=== PATIENT | female | born 1980 | race Caucasian/White ===

== ENCOUNTER → 2016-07-01 | Outpatient (CLI) | payer BC | LOC: MW.CHOBGYN 11:25 | PROVIDERS: ATTEND Obstetrics & Gynecology | DX: Z32.00 Encounter for pregnancy test, result unknown (principal) | CPT/HCPCS: 81025 ==

== ENCOUNTER → 2016-08-22 | Outpatient (CLI) | payer BC ==
[2016-08-22 12:52] LABS: CHLORIDE,CL 108 mmol/L (98-110); SODIUM,NA 141 mmol/L (136-146)
== END ==
LOC: MW.CHFP 11:57
PROVIDERS: ATTEND Nurse Practitioner Family
DX: R53.83 Other fatigue (principal)
CPT/HCPCS: 36415; 80053; 83036; 84443; 85025; 85652; 86140

== ENCOUNTER 2017-06-10 05:20 | Inpatient (IN) | payer BC ==
[2017-06-10] MEDS ORDERED: Methylergonovine 0.2 MG/1 ML Amp IM PRN ×2 (05:33→14:41)
[2017-06-10] MEDS ORDERED: Misoprostol 200 MCG Tab PO PRN (05:33)
[2017-06-10] MEDS ORDERED: Lidocaine 1% 50 ML MDV INJECT PRN (05:33)
[2017-06-10] MEDS ORDERED: Terbutaline 1 MG/ML SDV SUBCUT PRN (05:33)
[2017-06-10] MEDS ORDERED: Butorphanol 1 MG/ML SDV IVPUSH PRN (05:33)
[2017-06-10] MEDS ORDERED: Carboprost Tromethamine 250 MCG/1 ML Amp IM PRN (05:33)
[2017-06-10] MEDS ORDERED: Nalbuphine 10 MG/1 ML Vial IVPUSH PRN (05:33)
[2017-06-10] MEDS ORDERED: Misoprostol 25 MCG (1/4 of 100 MCG) Tab VAG PRN (05:33)
[2017-06-10] MEDS ORDERED: Sodium Chloride 0.9% 10 ML Syringe FLUSH PRN (05:33)
[2017-06-10] MEDS ORDERED: Water For Irrigation,Sterile 1,000 ML Container IRR PRN (05:33)
[2017-06-10] MEDS ORDERED: Sodium Chloride 0.9% 2.5 ML Syringe FLUSH PRN (05:33)
[2017-06-10] MEDS ORDERED: Oxytocin/0.9 % Sodium Chloride 30 UNIT/500 ML BAG IV SCH ×2 (05:45)
[2017-06-10] MEDS ORDERED: Misoprostol 25 MCG (1/4 of 100 MCG) Tab VAG SCH (05:45)
[2017-06-10] MEDS: Lactated Ringers 1,000 ML IV SCH ×2 (05:54→08:46)
[2017-06-10] MEDS ORDERED: fentaNYL/Bupivacaine-NS 2 MCG/ML-0.125%/PF 100 ML Bag EP ONE (08:22)
[2017-06-10] MEDS ORDERED: Ropivacaine 0.2% 2 MG/ML 20 ML SDV ONE (08:22)
--- NOTE | 2017-06-10 09:00 | PCM.PREANE ---
Preanesthetic Assessment - Procedure Proposed Procedure: induction of Labor for Gestational DM - Anesthesia/Transfusion/Family Hx Anesthesia History: Prior Anesthesia Without Reaction Family History of Anesthesia Reaction: No Transfusion History: No Prior Transfusion(s) - Review of Systems Other: Reports: None - Physical Assessment Height: 5 ft 5 in Weight: 120.746 kg ASA Class: 2 Mental Status: Alert & Oriented x3 Airway Class: Mallampati = 1 Thyro-Mental Finger Breadths: 3 Mouth Opening Finger Breadths: 3 ROM/Head Extension: Full - Lab Values: Laboratory Last Values WBC 9.88 K/uL (4.0-11.0) 06/10/17 05:50 RBC 3.96 M/uL (4.30-5.90) L 06/10/17 05:50 Hgb 10.9 g/dL (12.0-16.0) L 06/10/17 05:50 Hct 33.2 % (36.0-46.0) L 06/10/17 05:50 MCV 83.8 fL (80.0-98.0) 06/10/17 05:50 MCH 27.5 pg (27.0-32.0) 06/10/17 05:50 MCHC 32.8 g/dL (31.0-37.0) 06/10/17 05:50 RDW Std Deviation 44.9 fl (28.0-62.0) 06/10/17 05:50 RDW Coeff of River 15 % (11.0-15.0) 06/10/17 05:50 Plt Count 197 K/uL (150-400) 06/10/17 05:50 MPV 12.10 fL (7.40-12.00) H 06/10/17 05:50 Nucleated RBC % 0.0 /100WBC 06/10/17 05:50 Nucleated RBCs # 0 K/uL 06/10/17 05:50 POC Glucose 62 mg/dL (60-110) 06/10/17 07:24 Blood Type A POSITIVE 06/10/17 05:50 Antibody Screen NEGATIVE 06/10/17 05:50 - Allergies Allergies/Adverse Reactions: Allergies Allergy/AdvReac Type Severity Reaction Status Date / Time desogestrel Allergy Rash Verified 06/10/17 05:33 [From BeOnDesk (21)] ethinyl estradiol Allergy Rash Verified 06/10/17 05:33 [From Ortho-Cept (21)] - Blood Blood Available: Yes Product(s) Available: PRBC - Acknowledgements Anesthesia Type Planned: Epidural Pt an Appropriate Candidate for the Planned Anesthesia: Yes Alternatives and Risks of Anesthesia Discussed w Pt/Guardian: Yes Pt/Guardian Understands and Agrees with Anesthesia Plan: Yes PreAnesthesia 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 , , 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 Other OB/BYN History: 10 para 4 Endocrine/Metabolic History: Reports: Diabetes, Gestational - Past Surgical History HEENT Surgical History: Reports: Other (See Below) Other HEENT Surgeries/Procedures: wisdom tooth extraction GI Surgical History: Reports: Cholecystectomy Other Musculoskeletal Surgeries/Procedures:: right wrist - SUBSTANCE USE Smoking Status *Q: Never Smoker Second Hand Smoke Exposure: No Recreational Drug Use History: No - CURRENT (IN HOUSE) MEDS Current Meds: Current Medications Butorphanol Tartrate (Stadol) 1 mg IVPUSH ASDIRECTED PRN PRN Reason: Pain Carboprost Tromethamine (Hemabate Ds) 250 mcg IM ASDIRECTED PRN PRN Reason: Post Hemorrhage Lactated Ringer's (Ringers, Lactated) 1,000 mls @ 150 mls/hr IV ASDIRECTED DANIEL Last Admin: 06/10/17 08:46 Dose: 150 mls/hr Oxytocin/Sodium Chloride (Oxytocin 30 Unit/500 Ml-Ns) 30 unit in 500 mls @ 999 mls/hr IV ASDIRECTED DANIEL Lidocaine HCl (Xylocaine 1%) 50 ml INJECT .ONCE PRN PRN Reason: Laceration repair Methylergonovine Maleate (Methergine) 0.2 mg IM ASDIRECTED PRN PRN Reason: Post Hemorrhage Misoprostol (Cytotec) 200 mcg PO .ONCE PRN PRN Reason: Post Hemorrhage Misoprostol (Cytotec) 25 mcg VAG .ONCE DANIEL Misoprostol (Cytotec) 25 mcg VAG Q6H PRN PRN Reason: Cervical Ripening Last Admin: 06/10/17 06:12 Dose: 25 mcg Nalbuphine HCl (Nubain) 10 mg IVPUSH ASDIRECTED PRN PRN Reason: Pain (severe 7-10) Sodium Chloride (Saline Flush) 10 ml FLUSH ASDIRECTED PRN PRN Reason: Keep Vein Open Sodium Chloride (Saline Flush) 2.5 ml FLUSH ASDIRECTED PRN PRN Reason: Keep Vein Open Sterile Water (Sterile Water For Irrigation) 1,000 ml IRR ASDIRECTED PRN PRN Reason: delivery Terbutaline Sulfate (Brethine) 0.25 mg SUBCUT ASDIRECTED PRN PRN Reason: Tacysystole Discontinued Medications Ropivacaine (Naropin 0.2%) Confirm Administered Dose 20 ml .ROUTE .[facility] ONE Stop: 06/10/17 08:23
[2017-06-10] MEDS ORDERED: Misoprostol 50 MCG (1/2 of 100 MCG) Tab VAG SCH (11:15)
[2017-06-10] MEDS ORDERED: Dextrose 5%-0.45% NaCl 1,000 ML IV SCH (11:15)
[2017-06-10] MEDS ORDERED: oxyCODONE 5 MG Tab PO PRN (14:41)
[2017-06-10] MEDS ORDERED: Benzocaine/Menthol 20%-0.5% Spray 78 GM Cannister TOP PRN (14:41)
[2017-06-10] MEDS ORDERED: Bisacodyl 10 MG Supp RECTAL PRN (14:41)
[2017-06-10] MEDS ORDERED: Acetaminophen 500 MG Tab PO PRN ×2 (14:41)
[2017-06-10] MEDS ORDERED: Ibuprofen 400 MG Tab PO PRN (14:41)
[2017-06-10] MEDS ORDERED: Witch Hazel Medicated Pads 40/Jar TOP PRN (14:41)
[2017-06-10] MEDS ORDERED: Docusate Sodium 100 MG Cap PO PRN (14:41)
[2017-06-10] MEDS ORDERED: Lanolin 100% Cream 7 GM Tube TOP PRN (14:41)
[2017-06-11] MEDS: Ibuprofen 800 MG Tab PO PRN ×2 (01:37→12:00)
--- NOTE | 2017-06-11 06:22 | OR ---
SURGEON: Nicole Salmeron M.D. DATE OF PROCEDURE: 06/10/2017 PREOPERATIVE DIAGNOSIS: A 39 and 2/7th weeks' gestation with gestational diabetes type A1, advanced maternal age. POSTOPERATIVE DIAGNOSES: A 39 and 2/7th weeks' gestation with gestational diabetes type A1, advanced maternal age. PROCEDURE: Cytotec induction of labor, term spontaneous vaginal delivery. ANESTHESIA: Epidural. ESTIMATED BLOOD LOSS: Less than 300 mL. FINDINGS: Liveborn female, scores 9 and 9. Weight pending at the time of dictation. Placenta delivered spontaneously. Schultze intact with 3 vessels. No perineal lacerations. COMPLICATIONS: None known. DISPOSITION: Mother and baby remained in [facility] in good condition. BRIEF HISTORY: This is a 37-year-old female. She is G12, P4. She presents for induction of labor. She is 37 years old and has gestational diabetes. She has previously been induced with Cytotec only with very easy inductions, and therefore she did receive 2 doses of cytotec approximately 5 hours apart. About 3 hours after the first dose of Cytotec, she was 2 cm dilated, artificial rupture of membranes was performed. She received an epidural for pain control. She continued to progress to 7 to 8 cm dilatation, at which time, the head was noted to be in the right occiput posterior position and was manually rotated to the right occiput anterior position, and at this time, the cervix was reduced and she was complete. DESCRIPTION OF PROCEDURE: With the patient in the dorsal lithotomy position, the patient pushed over 2 contractions to a 5+ station, at which time, the head was delivered spontaneously and atraumatically over the perineum with support. With subsequent delivery of the infant's shoulders and body without any difficulty, the was bulb suctioned by nose and mouth. The cord was clamped x2 and cut after it had ceased to pulsate, and the infant was handed to the mother in the presence of the nurse attending delivery. The infant was a liveborn female. scores 9 and 9. Weight is pending at the time of dictation. Cord blood was collected for cord ABGs as well as routine cord blood sampling. Pitocin was initiated after delivery of the infant to assist with delivery of the placenta which was delivered spontaneously. Schultze intact with 3 vessels. Upon inspection of the pelvis and perineum, there were no periurethral, vaginal sidewall, cervical, rectal, or perineal lacerations. EBL was less than 300 mL. There were no known complications. Mother and baby are in [facility] in good condition. Final sponge, needle, and instrument counts were correct. JOSE LUIS LEE /[id number] MTDD
[2017-06-11 06:29] LABS: CHLORIDE,CL 108 mmol/L (98-110); SODIUM,NA 137 mmol/L (136-146)
--- NOTE | 2017-06-11 08:16 | PCM48HPAN ---
Post Anesthesia Note - EVALUATION WITHIN 48HRS OF ANESTHETIC Vital Signs in Normal Range: Yes Patient Participated in Evaluation: Yes Respiratory Function Stable: Yes Airway Patent: Yes Cardiovascular Function Stable: Yes Hydration Status Stable: Yes Pain Control Satisfactory: Yes Nausea and Vomiting Control Satisfactory: Yes Mental Status Recovered: Yes
--- NOTE | 2017-06-11 08:35 | PCM.PNPP ---
- General Info Date of Service: 06/11/17 Functional Status: Reports: Pain Controlled, Tolerating Diet, Ambulating, Urinating - Review of Systems General: Denies: Fever, Weakness, Fatigue Pulmonary: Denies: Shortness of Breath, Pleuritic Chest Pain, Cough Cardiovascular: Denies: Chest Pain, Palpitations, Dyspnea on Exertion Gastrointestinal: Denies: Abdominal Pain Genitourinary: Denies: Dysuria - General Info Date of Service: 06/11/17 - Patient Data Vital Signs - Most Recent: Last Vital Signs Temp 36.4 C 06/11/17 04:11 Pulse 69 06/11/17 04:11 Resp 18 06/11/17 04:11 BP 126/73 06/11/17 04:11 Pulse Ox 100 06/11/17 04:11 Weight - Most Recent: 120.746 kg Lab Results - Last 24 Hours: Laboratory Results - last 24 hr 06/10/17 06/10/17 06/11/17 Range/Units 10:46 12:53 05:50 Hgb 10.6 L (12.0-16.0) g/dL Hct 32.8 L (36.0-46.0) % Sodium (136-146) mmol/L Potassium (3.5-5.1) mmol/L Chloride (98-110) mmol/L Carbon Dioxide (21-31) mmol/L BUN (6.0-23.0) mg/dL Creatinine (0.6-1.5) mg/dL Est Cr Clr Drug Dosing mL/min Estimated GFR (MDRD) ml/min Glucose (60-110) mg/dL POC Glucose 50 L 65 (60-110) mg/dL Calcium (8.8-10.8) mg/dL 06/11/17 Range/Units 05:50 Hgb (12.0-16.0) g/dL Hct (36.0-46.0) % Sodium 137 (136-146) mmol/L Potassium 3.5 (3.5-5.1) mmol/L Chloride 108 (98-110) mmol/L Carbon Dioxide 22 (21-31) mmol/L BUN 8 (6.0-23.0) mg/dL Creatinine 0.7 (0.6-1.5) mg/dL Est Cr Clr Drug Dosing 97.09 mL/min Estimated GFR (MDRD) > 60.0 ml/min Glucose 68 (60-110) mg/dL POC Glucose (60-110) mg/dL Calcium 8.4 L (8.8-10.8) mg/dL Med Orders - Current: Current Medications Acetaminophen (Tylenol Extra Strength) 500 mg PO Q4H PRN PRN Reason: Pain Acetaminophen (Tylenol Extra Strength) 1,000 mg PO Q4H PRN PRN Reason: Pain Last Admin: 06/11/17 04:07 Dose: 1,000 mg Benzocaine/Menthol (Dermoplast Pain Relief 20%-0.5% [place]) 78 gm TOP ASDIRECTED PRN PRN Reason: Perineal Comfort Measure Bisacodyl (Dulcolax) 10 mg RECTAL .ONCE PRN PRN Reason: Constipation Docusate Sodium (Colace) 100 mg PO BID PRN PRN Reason: Constipation Emollient Ointment (Lansinoh Hpa) 0 gm TOP ASDIRECTED PRN PRN Reason: Sore Nipples Ibuprofen (Motrin) 400 mg PO Q4H PRN PRN Reason: Pain Ibuprofen (Motrin) 800 mg PO Q6H PRN PRN Reason: Pain Last Admin: 06/11/17 01:37 Dose: 800 mg Methylergonovine Maleate (Methergine) 0.2 mg IM .ONCE PRN PRN Reason: Excessive Vaginal Bleeding Oxycodone HCl (Oxycodone) 5 mg PO Q2H PRN PRN Reason: Pain Witch Rajni (Tucks) 1 pad TOP ASDIRECTED PRN PRN Reason: comfort care Discontinued Medications Butorphanol Tartrate (Stadol) 1 mg IVPUSH ASDIRECTED PRN PRN Reason: Pain Carboprost Tromethamine (Hemabate Ds) 250 mcg IM ASDIRECTED PRN PRN Reason: Post Hemorrhage Lactated Ringer's (Ringers, Lactated) 1,000 mls @ 150 mls/hr IV ASDIRECTED [facility] Last Admin: 06/10/17 08:46 Dose: 150 mls/hr Oxytocin/Sodium Chloride (Oxytocin 30 Unit/500 Ml-Ns) 30 unit in 500 mls @ 999 mls/hr IV ASDIRECTED [facility] Last Admin: 06/10/17 14:22 Dose: 500 mls/hr Dextrose/Sodium Chloride (Dextrose 5%-1/2 Ns) 1,000 mls @ 125 mls/hr IV ASDIRECTED DANIEL Last Admin: 06/10/17 11:30 Dose: 125 mls/hr Lidocaine HCl (Xylocaine 1%) 50 ml INJECT .ONCE PRN PRN Reason: Laceration repair Methylergonovine Maleate (Methergine) 0.2 mg IM ASDIRECTED PRN PRN Reason: Post Hemorrhage Misoprostol (Cytotec) 200 mcg PO .ONCE PRN PRN Reason: Post Hemorrhage Misoprostol (Cytotec) 25 mcg VAG .ONCE DANIEL Last Admin: 06/10/17 11:40 Dose: 25 mcg Misoprostol (Cytotec) 25 mcg VAG Q6H PRN PRN Reason: Cervical Ripening Last Admin: 06/10/17 06:12 Dose: 25 mcg Misoprostol (Cytotec) 25 mcg VAG .ONCE DANIEL Nalbuphine HCl (Nubain) 10 mg IVPUSH ASDIRECTED PRN PRN Reason: Pain (severe 7-10) Ropivacaine (Naropin 0.2%) Confirm Administered Dose 20 ml .ROUTE .[facility] ONE Stop: 06/10/17 08:23 Sodium Chloride (Saline Flush) 10 ml FLUSH ASDIRECTED PRN PRN Reason: Keep Vein Open Sodium Chloride (Saline Flush) 2.5 ml FLUSH ASDIRECTED PRN PRN Reason: Keep Vein Open Sterile Water (Sterile Water For Irrigation) 1,000 ml IRR ASDIRECTED PRN PRN Reason: delivery Last Admin: 06/10/17 14:20 Dose: 1,000 ml Terbutaline Sulfate (Brethine) 0.25 mg SUBCUT ASDIRECTED PRN PRN Reason: Tacysystole - Infant Interaction Disposition, : [place] in Room with Family Infant Interaction: Holding Feeding: Breastfed Infant; Nursed Well Support Person: - Recovery Exam Fundal Tone: Firm Fundal Level: 1 Fingerbreadths Below Umbilicus Fundal Placement: Midline Lochia Amount: Scant Lochia Color: Rubra/Red Perineum Description: Intact, Minimal Bruising/Swelling Episiotomy/Laceration: None Bladder Status: Voiding Urinary Elimination: Voided - Exam General: Alert, Oriented Neck: Supple Lungs: Clear to Auscultation, Normal Respiratory Effort Cardiovascular: Regular Rate, Regular Rhythm Extremities: Normal Inspection, Pedal Edema (trace) Skin: Warm, Dry - Problem List & Annotations (1) Vaginal delivery SNOMED Code(s): 941276905 Code(s): O80 - ENCOUNTER FOR FULL-TERM UNCOMPLICATED DELIVERY Status: Acute Current Visit: Yes - Problem List Review Problem List Initiated/Reviewed/Updated: Yes - Assessment Assessment:: PPD#1 from . Minimal pain and lochia. Breast feeding well, however, with low blood sugars. If stabilizes plans discharge later today. - Plan Plan:: Discharge instructions reviewed. Nothing in the vagina for 6 weeks. Continue PNV while breast feeding. Can use OTC ibuprofen/tylenol as needed for pain. Instructed patient to call if she develops fever greater than 101 or bleeding through a large pad an hour. F/U with [facility] in 6 weeks.
== END 2017-06-11 17:00 | disposition home or self-care (01) | DRG 560 ==
LOC: MW.OB 05:20
PROVIDERS: ADMIT Obstetrics & Gynecology; ATTEND Obstetrics & Gynecology
PROC: 10E0XZZ Delivery of Products of Conception, External Approach (ICD-10-PCS; principal; 2017-06-10)
PROC: 3E0P7VZ Introduction of Hormone into Female Reproductive, Via Natural or Artificial Opening (ICD-10-PCS; 2017-06-10)
PROC: 10907ZC Drainage of Amniotic Fluid, Therapeutic from Products of Conception, Via Natural or Artificial Opening (ICD-10-PCS; 2017-06-10)
DX: O24.429 Gestational diabetes mellitus in childbirth, unspecified control (principal); O09.523 Supervision of elderly multigravida, third trimester; O09.43 Supervision of pregnancy with grand multiparity, third trimester; Z3A.39 39 weeks gestation of pregnancy; Z37.0 Single live birth
CPT/HCPCS: 36415; 51702; 59025; 59409; 80048; 82962; 85014; 85018; 85027; 86850; 86900; 86901; A9270-GY; J2590; J7042; J7120

== ENCOUNTER 2019-01-04 17:38 | Emergency (ER) | payer OTHER, BC ==
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
== END 2019-01-04 19:13 | disposition home or self-care (01) ==
LOC: MW.ED 17:38
DX: Z04.1 Encounter for examination and observation following transport accident (principal); O99.511 Diseases of the respiratory system complicating pregnancy, first trimester; J45.909 Unspecified asthma, uncomplicated; Z3A.10 10 weeks gestation of pregnancy
CPT/HCPCS: 99282; 99283

== ENCOUNTER 2019-07-27 11:20 | Inpatient (IN) | payer SELFPAY ==
[2019-07-27] MEDS ORDERED: Lidocaine 1% 50 ML MDV INJECT PRN (11:59)
[2019-07-27] MEDS ORDERED: Water For Irrigation,Sterile 1,000 ML Container IRR PRN (11:59)
[2019-07-27] MEDS ORDERED: Methylergonovine 0.2 MG/1 ML Amp IM PRN ×2 (11:59→18:15)
[2019-07-27] MEDS ORDERED: Sodium Chloride 0.9% 2.5 ML Syringe FLUSH PRN (11:59)
[2019-07-27] MEDS ORDERED: Carboprost Tromethamine 250 MCG/1 ML Amp IM PRN (11:59)
[2019-07-27] MEDS ORDERED: Sodium Chloride 0.9% 10 ML SDV IV PRN (11:59)
[2019-07-27] MEDS ORDERED: Sodium Chloride 0.9% 10 ML Syringe FLUSH PRN (11:59)
[2019-07-27] MEDS ORDERED: Tranexamic Acid 1,000 MG in Sodium Chloride 0.9% 100 ML IV PRN ×2 (11:59→18:15)
[2019-07-27] MEDS ORDERED: Nalbuphine 10 MG/1 ML Vial IVPUSH PRN (11:59)
[2019-07-27] MEDS ORDERED: Butorphanol 1 MG/ML SDV IVPUSH PRN (11:59)
[2019-07-27] MEDS ORDERED: Misoprostol 200 MCG Tab PO PRN (11:59)
[2019-07-27] MEDS ORDERED: Oxytocin/0.9 % Sodium Chloride 30 UNIT/500 ML BAG IV SCH (12:00)
[2019-07-27] MEDS ORDERED: Misoprostol 25 MCG (1/4 of 100 MCG) Tab VAG PRN ×2 (12:01)
[2019-07-27] MEDS ORDERED: Terbutaline 1 MG/ML SDV SUBCUT PRN (12:01)
[2019-07-27] MEDS: Lactated Ringers 1,000 ML IV SCH ×2 (16:20→17:10)
[2019-07-27] MEDS ORDERED: Bupivicaine/fentaNYL/NS 250 ML ONE (16:23)
[2019-07-27] MEDS ORDERED: fentaNYL 100 MCG/2 ML SDV ONE (16:24)
[2019-07-27] MEDS ORDERED: Ropivacaine 0.2% PF 2 MG/ML 20 ML SDV ONE (16:25)
--- NOTE | 2019-07-27 16:56 | PCM.PREANE ---
Preanesthetic Assessment - Anesthesia/Transfusion/Family Hx Anesthesia History: Prior Anesthesia Without Reaction Family History of Anesthesia Reaction: No Transfusion History: No Prior Transfusion(s) - Review of Systems General: No Symptoms Pulmonary: No Symptoms Cardiovascular: No Symptoms Gastrointestinal: Abdominal Pain Neurological: No Symptoms Other: Reports: None - Physical Assessment NPO Status Date: 07/26/19 Height: 5 ft 4.5 in Weight: 123.831 kg ASA Class: 2E Mental Status: Alert & Oriented x3 Airway Class: Mallampati = 2 Dentition: Reports: Normal Dentition ROM/Head Extension: Full Lungs: Clear to Auscultation, Normal Respiratory Effort Cardiovascular: Regular Rate, Regular Rhythm - Lab Values: Laboratory Last Values WBC 10.43 K/uL (4.0-11.0) 07/27/19 11:50 RBC 3.90 M/uL (4.30-5.90) L 07/27/19 11:50 Hgb 10.4 g/dL (12.0-16.0) L 07/27/19 11:50 Hct 33.2 % (36.0-46.0) L 07/27/19 11:50 MCV 85.1 fL (80.0-98.0) 07/27/19 11:50 MCH 26.7 pg (27.0-32.0) L 07/27/19 11:50 MCHC 31.3 g/dL (31.0-37.0) 07/27/19 11:50 RDW Std Deviation 47.0 fl (28.0-62.0) 07/27/19 11:50 RDW Coeff of River 15 % (11.0-15.0) 07/27/19 11:50 Plt Count 218 K/uL (150-400) 07/27/19 11:50 MPV 11.50 fL (7.40-12.00) 07/27/19 11:50 Nucleated RBC % 0.0 /100WBC 07/27/19 11:50 Nucleated RBCs # 0 K/uL 07/27/19 11:50 Blood Type A POSITIVE 07/27/19 11:50 Antibody Screen NEGATIVE 07/27/19 11:50 - Allergies Allergies/Adverse Reactions: Allergies Allergy/AdvReac Type Severity Reaction Status Date / Time desogestrel Allergy Rash Verified 01/04/19 18:09 [From Ortho-Cept (21)] ethinyl estradiol Allergy Rash Verified 01/04/19 18:09 [From Ortho-Cept (21)] - Anesthesia Plan Pre-Op Medication Ordered: None - Acknowledgements Anesthesia Type Planned: Epidural Pt an Appropriate Candidate for the Planned Anesthesia: Yes Alternatives and Risks of Anesthesia Discussed w Pt/Guardian: Yes Pt/Guardian Understands and Agrees with Anesthesia Plan: Yes PreAnesthesia Questionnaire Cardiovascular History: Reports: None Respiratory History: Reports: None Gastrointestinal History: Reports: Cholelithiasis, Irritable Bowel Syndrome Genitourinary History: Reports: None 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: , 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 Other OB/BYN History: 11 para 5 Musculoskeletal History: Reports: Fracture, Fibromyalgia Neurological History: Reports: Concussion, Headaches, Chronic, Migraines Psychiatric History: Reports: Anxiety, Depression, Panic Attack, PTSD Endocrine/Metabolic History: Reports: Diabetes, Gestational Hematologic History: Reports: None Immunologic History: Reports: None Oncologic (Cancer) History: Reports: None Dermatologic History: Reports: None - Infectious Disease History Infectious Disease History: Reports: Chicken Pox, Influenza - Past Surgical History Head Surgeries/Procedures: Reports: None HEENT Surgical History: Reports: Oral Surgery Other HEENT Surgeries/Procedures: wisdom tooth extraction GI Surgical History: Reports: Cholecystectomy Female Surgical History: Reports: None Musculoskeletal Surgical History: Reports: ORIF Other Musculoskeletal Surgeries/Procedures:: right wrist, R wrist repair with 2 pins - SUBSTANCE USE Smoking Status *Q: Never Smoker Second Hand Smoke Exposure: No Recreational Drug Use History: No - HOME MEDS Home Medications: Home Meds Pnv No.95/Ferrous Fum/Folic AC [ Caplet] 1 each PO DAILY 01/04/19 [ History] Escitalopram [Lexapro] 10 mg PO DAILY 07/27/19 [History] - CURRENT (IN HOUSE) MEDS Current Meds: Current Medications Butorphanol Tartrate (Stadol) 1 mg IVPUSH Q1H PRN PRN Reason: Pain Carboprost Tromethamine (Hemabate Ds) 250 mcg IM ASDIRECTED PRN PRN Reason: Post Hemorrhage Lactated Ringer's (Ringers, Lactated) 1,000 mls @ 150 mls/hr IV ASDIRECTED DANIEL Oxytocin/Sodium Chloride (Oxytocin 30 Unit/500 Ml-Ns) 30 unit in 500 mls @ 500 mls/hr IV TITRATE DANIEL Tranexamic Acid 1,000 mg/ (Sodium Chloride) 110 mls @ 660 mls/hr IV ONETIME PRN PRN Reason: Bleeding Lidocaine HCl (Xylocaine 1%) 50 ml INJECT ONETIME PRN PRN Reason: Laceration repair Methylergonovine Maleate (Methergine) 0.2 mg IM ASDIRECTED PRN PRN Reason: Post Hemorrhage Misoprostol (Cytotec) 200 mcg PO ONETIME PRN PRN Reason: Post Hemorrhage Misoprostol (Cytotec) 25 mcg VAG ONETIME PRN PRN Reason: Cervical Ripening Last Admin: 07/27/19 12:26 Dose: 25 mcg Misoprostol (Cytotec) 25 mcg VAG Q4H PRN PRN Reason: Cervical Ripening Nalbuphine HCl (Nubain) 10 mg IVPUSH Q1H PRN PRN Reason: Pain (severe 7-10) Sodium Chloride (Saline Flush) 10 ml FLUSH ASDIRECTED PRN PRN Reason: Keep Vein Open Sodium Chloride (Saline Flush) 2.5 ml FLUSH ASDIRECTED PRN PRN Reason: Keep Vein Open Sodium Chloride (Normal Saline) 10 ml IV ASDIRECTED PRN PRN Reason: IV Use Sterile Water (Sterile Water For Irrigation) 1,000 ml IRR ASDIRECTED PRN PRN Reason: delivery Terbutaline Sulfate (Brethine) 0.25 mg SUBCUT ASDIRECTED PRN PRN Reason: Tacysystole Discontinued Medications Fentanyl (Sublimaze) Confirm Administered Dose 100 mcg .ROUTE .[facility] ONE Stop: 07/27/19 16:25 Fentanyl/Bupivacaine HCl (Fentanyl/Bupivacaine/Ns 2 Mcg-0.125% 250 Ml) Confirm Administered Dose 250 mls @ as directed .ROUTE .[facility] ONE Stop: 07/27/19 16:24 Ropivacaine (Naropin 0.2%) Confirm Administered Dose 20 ml .ROUTE .[facility] ONE Stop: 07/27/19 16:26
--- NOTE | 2019-07-27 18:13 | PCM.DEL ---
L & D Note - General Info Date of Service: 07/27/19 Mother's Due Date: 07/29/19 - Delivery Note Cervical Ripening Method: Misoprostil Delivery Outcome: Livebirth Infant Delivery Method: Spontaneous Vaginal Delivery-Single Presentation: Left Occiput Anterior (LIDYA) Nuchal Cord: None Prep: Other Anesthesia Type: Epidural Amniotic Fluid Description: Meconium Stained Episiotomy Type: None Laceration: None Placenta: Intact, Spontaneous Cord: 3 Vessels Resuscitation Needed: No : Suctioned Score 1 min: 8 Score 5 min: 8 Delivery Comments (Free Text/Narrative):: liveborn female - General Info Date of Service: 07/27/19 - Patient Data Weight - Most Recent: 123.831 kg Lab Results Last 24 Hours: Laboratory Results - last 24 hr 07/27/19 07/27/19 Range/Units 11:50 11:50 WBC 10.43 (4.0-11.0) K/uL RBC 3.90 L (4.30-5.90) M/uL Hgb 10.4 L (12.0-16.0) g/dL Hct 33.2 L (36.0-46.0) % MCV 85.1 (80.0-98.0) fL MCH 26.7 L (27.0-32.0) pg MCHC 31.3 (31.0-37.0) g/dL RDW Std Deviation 47.0 (28.0-62.0) fl RDW Coeff of River 15 (11.0-15.0) % Plt Count 218 (150-400) K/uL MPV 11.50 (7.40-12.00) fL Nucleated RBC % 0.0 /100WBC Nucleated RBCs # 0 K/uL Blood Type A POSITIVE Antibody Screen NEGATIVE Med Orders - Current: Current Medications Butorphanol Tartrate (Stadol) 1 mg IVPUSH Q1H PRN PRN Reason: Pain Carboprost Tromethamine (Hemabate Ds) 250 mcg IM ASDIRECTED PRN PRN Reason: Post Hemorrhage Lactated Ringer's (Ringers, Lactated) 1,000 mls @ 150 mls/hr IV ASDIRECTED DANIEL Oxytocin/Sodium Chloride (Oxytocin 30 Unit/500 Ml-Ns) 30 unit in 500 mls @ 500 mls/hr IV TITRATE DANIEL Tranexamic Acid 1,000 mg/ (Sodium Chloride) 110 mls @ 660 mls/hr IV ONETIME PRN PRN Reason: Bleeding Lidocaine HCl (Xylocaine 1%) 50 ml INJECT ONETIME PRN PRN Reason: Laceration repair Methylergonovine Maleate (Methergine) 0.2 mg IM ASDIRECTED PRN PRN Reason: Post Hemorrhage Misoprostol (Cytotec) 200 mcg PO ONETIME PRN PRN Reason: Post Hemorrhage Misoprostol (Cytotec) 25 mcg VAG ONETIME PRN PRN Reason: Cervical Ripening Last Admin: 07/27/19 12:26 Dose: 25 mcg Misoprostol (Cytotec) 25 mcg VAG Q4H PRN PRN Reason: Cervical Ripening Nalbuphine HCl (Nubain) 10 mg IVPUSH Q1H PRN PRN Reason: Pain (severe 7-10) Sodium Chloride (Saline Flush) 10 ml FLUSH ASDIRECTED PRN PRN Reason: Keep Vein Open Sodium Chloride (Saline Flush) 2.5 ml FLUSH ASDIRECTED PRN PRN Reason: Keep Vein Open Sodium Chloride (Normal Saline) 10 ml IV ASDIRECTED PRN PRN Reason: IV Use Sterile Water (Sterile Water For Irrigation) 1,000 ml IRR ASDIRECTED PRN PRN Reason: delivery Terbutaline Sulfate (Brethine) 0.25 mg SUBCUT ASDIRECTED PRN PRN Reason: Tacysystole Discontinued Medications Fentanyl (Sublimaze) Confirm Administered Dose 100 mcg .ROUTE .STK-MED ONE Stop: 07/27/19 16:25 Fentanyl/Bupivacaine HCl (Fentanyl/Bupivacaine/Ns 2 Mcg-0.125% 250 Ml) Confirm Administered Dose 250 mls @ as directed .ROUTE .STK-MED ONE Stop: 07/27/19 16:24 Ropivacaine (Naropin 0.2%) Confirm Administered Dose 20 ml .ROUTE .STK-MED ONE Stop: 07/27/19 16:26 - Problem List & Annotations (1) Elderly multigravida delivered SNOMED Code(s): 779281588, 391693927 Code(s): O09.529 - SUPERVISION OF ELDERLY MULTIGRAVIDA, UNSPECIFIED TRIMESTER Status: Acute Current Visit: Yes (2) Vaginal delivery SNOMED Code(s): 862975212 Code(s): O80 - ENCOUNTER FOR FULL-TERM UNCOMPLICATED DELIVERY Status: Acute Current Visit: No - Problem List Review Problem List Initiated/Reviewed/Updated: Yes - My Orders Last 24 Hours: My Active Orders 07/27/19 11:50 RPR (SYPHILIS SERO) W/ RFLX [REF] Routine 07/27/19 11:59 Patient Status [ADT] Routine Heart Tones [RC] CONTINUOUS Non Stress Test [RC] PER UNIT ROUTINE May Shower [RC] ASDIRECTED Notify Provider [RC] PRN Up ad Obdulia [RC] ASDIRECTED Vaginal Exam [RC] PRN Vital Signs [RC] PER UNIT ROUTINE Butorphanol [Stadol] 1 mg IVPUSH Q1H PRN Carboprost Tromethamine [Hemabate DS] 250 mcg IM ASDIRECTED PRN Lidocaine 1% [Xylocaine 1%] 50 ml INJECT ONETIME PRN Methylergonovine [Methergine] 0.2 mg IM ASDIRECTED PRN Nalbuphine [Nubain] 10 mg IVPUSH Q1H PRN Sodium Chloride 0.9% [Normal Saline] 10 ml IV ASDIRECTED PRN Sodium Chloride 0.9% [Saline Flush] 10 ml FLUSH ASDIRECTED PRN Sodium Chloride 0.9% [Saline Flush] 2.5 ml FLUSH ASDIRECTED PRN Tranexamic Acid [Cyklokapron] 1,000 mg Sodium Chloride 0.9% [Normal Saline] 100 ml IV ONETIME Water For Irrigation,Sterile [Sterile Water for Irrigation] 1,000 ml IRR ASDIRECTED PRN miSOPROStoL [Cytotec] 200 mcg PO ONETIME PRN Scalp Electrode [WOMSER] Per Unit Routine Peripheral IV Insertion Adult [OM.PC] Routine Resuscitation Status Routine 07/27/19 12:00 Lactated Ringers [Ringers, Lactated] 1,000 ml IV ASDIRECTED Oxytocin/0.9 % Sodium Chloride [Oxytocin 30 Unit/500 ML-NS] 30 unit in 500 ml IV TITRATE 07/27/19 12:01 Terbutaline [Brethine] 0.25 mg SUBCUT ASDIRECTED PRN miSOPROStoL [Cytotec] 25 mcg VAG ONETIME PRN miSOPROStoL [Cytotec] 25 mcg VAG Q4H PRN 07/27/19 12:02 Bedrest Bathroom Privileges [RC] ASDIRECTED Communication Order [RC] ASDIRECTED Communication Order [RC] ASDIRECTED Communication Order [RC] ASDIRECTED Notify Provider [RC] PRN Notify Provider [RC] PRN Notify Provider [RC] STAT Vaginal Exam [RC] PRN Vital Signs [RC] PER UNIT ROUTINE 07/27/19 12:15 Medication Administration Instruction [OM.PC] Q3H
[2019-07-27] MEDS ORDERED: Lanolin 100% Cream 7 GM Tube TOP PRN (18:15)
[2019-07-27] MEDS ORDERED: Benzocaine/Menthol 20%-0.5% Spray 78 GM Cannister TOP PRN (18:15)
[2019-07-27] MEDS ORDERED: Ibuprofen 400 MG Tab PO PRN (18:15)
[2019-07-27] MEDS ORDERED: Witch Hazel Medicated Pads 40/Jar TOP PRN (18:15)
[2019-07-27] MEDS ORDERED: Bisacodyl 10 MG Supp RECTAL PRN (18:15)
[2019-07-27] MEDS ORDERED: Acetaminophen 500 MG Tab PO PRN ×2 (18:15)
[2019-07-27] MEDS ORDERED: Ibuprofen 800 MG Tab PO PRN (18:15)
[2019-07-27] MEDS ORDERED: Docusate Sodium 100 MG Cap PO PRN (18:15)
--- NOTE | 2019-07-27 18:34 | OR ---
SURGEON: Nicole Salmeron M.D. DATE OF PROCEDURE: 07/27/2019 PREOPERATIVE DIAGNOSES: A 39-5/7 weeks' intrauterine , advanced maternal age. POSTOPERATIVE DIAGNOSES: A 39-5/7 weeks' intrauterine , advanced maternal age. PROCEDURES: Cytotec induction of labor, artificial rupture of membranes, term spontaneous vaginal delivery. PRIMARY SURGEON: Nicole Salmeron MD ANESTHESIA: Epidural. ESTIMATED BLOOD LOSS: Less than 200 mL. FINDINGS: Liveborn female. Weight is pending at the time of dictation. Perineum intact. Placenta spontaneous, Schultze intact with 3 vessels. COMPLICATIONS: None known. DISPOSITION: Stable to Recovery. BRIEF HISTORY: This is a 39-year-old female, G12, P 5-0-6-5. She presents at 39-5/7 weeks' gestation for induction of labor for advanced maternal age. She has had normal glucose readings. She does not officially have the diagnosis of gestational diabetes with this ; however, she has had with prior pregnancies. She has been followed with serial growth ultrasounds. MBPP is after 36 weeks. She presents for induction of labor, 1 cm thick. She received a single dose of Cytotec. She progressed into labor. She had category 1 heart tones. She received an epidural for pain control. She progressed to 7 cm. Artificial rupture of membranes was performed. She progressed to complete. DESCRIPTION OF PROCEDURE: With the patient in dorsal lithotomy position, under adequate epidural analgesia, the patient pushed over one contraction to a 5+ station at which time the head was delivered spontaneously and atraumatically over the perineum with support with subsequent delivery of the infant's shoulders and body without any difficulty. The was bulb suctioned by nose and mouth, and after the cord had ceased to pulsate, it was doubly clamped and cut. The was handed to the mother in the presence of nurse attending delivery. The was a liveborn female, weight is pending at the time of dictation. Cord blood was collected for cord ABGs as well as routine cord blood sampling. Pitocin was initiated after delivery of the to assist with delivery of the placenta, which was delivered spontaneously, Schultze intact with 3 vessels. Upon inspection of the pelvis and perineum, there were no periurethral, vaginal sidewall, cervical, rectal, or perineal lacerations. EBL was less than 200 mL. Mother and baby are in LDR in good condition. Final sponge, needle, and instrument counts were correct. JOSE LUIS / JESUS /[id number]
--- NOTE | 2019-07-28 08:20 | PCM.PNPP ---
- General Info Date of Service: 07/28/19 Functional Status: Reports: Pain Controlled, Tolerating Diet, Ambulating, Urinating - Review of Systems General: Reports: No Symptoms HEENT: Reports: No Symptoms Pulmonary: Reports: No Symptoms Cardiovascular: Reports: No Symptoms Gastrointestinal: Reports: No Symptoms Genitourinary: Reports: No Symptoms Musculoskeletal: Reports: No Symptoms Skin: Reports: No Symptoms Neurological: Reports: No Symptoms Psychiatric: Reports: No Symptoms - General Info Date of Service: 07/28/19 - Patient Data Vital Signs - Most Recent: Last Vital Signs Temp 36.5 C 07/28/19 04:00 Pulse 77 07/28/19 04:00 Resp 18 07/28/19 04:00 BP 127/76 07/28/19 04:50 Pulse Ox 96 07/28/19 04:00 Weight - Most Recent: 123.831 kg Lab Results - Last 24 Hours: Laboratory Results - last 24 hr 07/27/19 07/27/19 07/27/19 Range/Units 11:50 11:50 17:42 WBC 10.43 (4.0-11.0) K/uL RBC 3.90 L (4.30-5.90) M/uL Hgb 10.4 L (12.0-16.0) g/dL Hct 33.2 L (36.0-46.0) % MCV 85.1 (80.0-98.0) fL MCH 26.7 L (27.0-32.0) pg MCHC 31.3 (31.0-37.0) g/dL RDW Std Deviation 47.0 (28.0-62.0) fl RDW Coeff of River 15 (11.0-15.0) % Plt Count 218 (150-400) K/uL MPV 11.50 (7.40-12.00) fL Nucleated RBC % 0.0 /100WBC Nucleated RBCs # 0 K/uL Cord ABG pH 7.333 (7.18-7.38) Cord ABG Base Excess -5 (-10--2) Cord VBG pH 7.257 (7.25-7.45) Cord VBG Base Excess -4 (-10--2) Blood Type A POSITIVE Antibody Screen NEGATIVE 07/28/19 Range/Units 05:26 WBC (4.0-11.0) K/uL RBC (4.30-5.90) M/uL Hgb 10.4 L (12.0-16.0) g/dL Hct 33.3 L (36.0-46.0) % MCV (80.0-98.0) fL MCH (27.0-32.0) pg MCHC (31.0-37.0) g/dL RDW Std Deviation (28.0-62.0) fl RDW Coeff of River (11.0-15.0) % Plt Count (150-400) K/uL MPV (7.40-12.00) fL Nucleated RBC % /100WBC Nucleated RBCs # K/uL Cord ABG pH (7.18-7.38) Cord ABG Base Excess (-10--2) Cord VBG pH (7.25-7.45) Cord VBG Base Excess (-10--2) Blood Type Antibody Screen Med Orders - Current: Current Medications Acetaminophen (Tylenol Extra Strength) 500 mg PO Q4H PRN PRN Reason: Pain Last Admin: 07/28/19 04:18 Dose: 500 mg Acetaminophen (Tylenol Extra Strength) 1,000 mg PO Q4H PRN PRN Reason: Pain Benzocaine/Menthol (Dermoplast Pain Relief 20%-0.5% [place]) 78 gm TOP ASDIRECTED PRN PRN Reason: Perineal Comfort Measure Bisacodyl (Dulcolax) 10 mg RECTAL ONETIME PRN PRN Reason: Constipation Docusate Sodium (Colace) 100 mg PO BID PRN PRN Reason: Constipation Last Admin: 07/27/19 23:14 Dose: 100 mg Emollient Ointment (Lansinoh Hpa) 0 gm TOP ASDIRECTED PRN PRN Reason: Sore Nipples Last Admin: 07/28/19 04:31 Dose: 7 gm Tranexamic Acid 1,000 mg/ (Sodium Chloride) 110 mls @ 660 mls/hr IV ONETIME PRN PRN Reason: Bleeding Ibuprofen (Motrin) 400 mg PO Q4H PRN PRN Reason: Pain Ibuprofen (Motrin) 800 mg PO Q6H PRN PRN Reason: Pain Last Admin: 07/28/19 01:23 Dose: 800 mg Methylergonovine Maleate (Methergine) 0.2 mg IM ONETIME PRN PRN Reason: Excessive Vaginal Bleeding Witch Rajni (Tucks) 1 pad TOP ASDIRECTED PRN PRN Reason: comfort care Discontinued Medications Butorphanol Tartrate (Stadol) 1 mg IVPUSH Q1H PRN PRN Reason: Pain Carboprost Tromethamine (Hemabate Ds) 250 mcg IM ASDIRECTED PRN PRN Reason: Post Hemorrhage Fentanyl (Sublimaze) Confirm Administered Dose 100 mcg .ROUTE .STK-MED ONE Stop: 07/27/19 16:25 Lactated Ringer's (Ringers, Lactated) 1,000 mls @ 150 mls/hr IV ASDIRECTED [facility] Last Admin: 07/27/19 17:10 Dose: 999 mls/hr Oxytocin/Sodium Chloride (Oxytocin 30 Unit/500 Ml-Ns) 30 unit in 500 mls @ 500 mls/hr IV TITRATE [facility] Last Admin: 07/27/19 17:44 Dose: 500 mls/hr Tranexamic Acid 1,000 mg/ (Sodium Chloride) 110 mls @ 660 mls/hr IV ONETIME PRN PRN Reason: Bleeding Fentanyl/Bupivacaine HCl (Fentanyl/Bupivacaine/Ns 2 Mcg-0.125% 250 Ml) Confirm Administered Dose 250 mls @ as directed .ROUTE .STCRISPR THERAPEUTICS-MED ONE Stop: 07/27/19 16:24 Lidocaine HCl (Xylocaine 1%) 50 ml INJECT ONETIME PRN PRN Reason: Laceration repair Methylergonovine Maleate (Methergine) 0.2 mg IM ASDIRECTED PRN PRN Reason: Post Hemorrhage Misoprostol (Cytotec) 200 mcg PO ONETIME PRN PRN Reason: Post Hemorrhage Misoprostol (Cytotec) 25 mcg VAG ONETIME PRN PRN Reason: Cervical Ripening Last Admin: 07/27/19 12:26 Dose: 25 mcg Misoprostol (Cytotec) 25 mcg VAG Q4H PRN PRN Reason: Cervical Ripening Nalbuphine HCl (Nubain) 10 mg IVPUSH Q1H PRN PRN Reason: Pain (severe 7-10) Ropivacaine (Naropin 0.2%) Confirm Administered Dose 20 ml .ROUTE .STCRISPR THERAPEUTICS-MED ONE Stop: 07/27/19 16:26 Sodium Chloride (Saline Flush) 10 ml FLUSH ASDIRECTED PRN PRN Reason: Keep Vein Open Sodium Chloride (Saline Flush) 2.5 ml FLUSH ASDIRECTED PRN PRN Reason: Keep Vein Open Sodium Chloride (Normal Saline) 10 ml IV ASDIRECTED PRN PRN Reason: IV Use Sterile Water (Sterile Water For Irrigation) 1,000 ml IRR ASDIRECTED PRN PRN Reason: delivery Terbutaline Sulfate (Brethine) 0.25 mg SUBCUT ASDIRECTED PRN PRN Reason: Tacysystole - Infant Interaction Infant Disposition, : [place] in Room with Family Interaction: Holding Feeding: Breastfed ; Nursed Well Support Person: - Recovery Exam Fundal Tone: Firm Fundal Level: At Umbilicus Fundal Placement: Midline Lochia Amount: Scant Lochia Color: Rubra/Red Bladder Status: Voiding - Exam General: Alert, Oriented HEENT: Pupils Equal Neck: Supple Lungs: Normal Respiratory Effort GI/Abdominal Exam: Soft, Non-Tender, No Organomegaly, No Distention Extremities: Normal Inspection, Non-Tender, No Pedal Edema Skin: Warm, Dry, Intact Neurological: No New Focal Deficit Psy/Mental Status: Alert, Normal Affect, Normal Mood - Problem List & Annotations (1) Elderly multigravida delivered SNOMED Code(s): 352198853, 510375623 Code(s): O09.529 - SUPERVISION OF ELDERLY MULTIGRAVIDA, UNSPECIFIED TRIMESTER Status: Acute Current Visit: Yes (2) Vaginal delivery SNOMED Code(s): 859277747 Code(s): O80 - ENCOUNTER FOR FULL-TERM UNCOMPLICATED DELIVERY Status: Acute Current Visit: No - Problem List Review Problem List Initiated/Reviewed/Updated: Yes - My Orders Last 24 Hours: My Active Orders 07/27/19 11:50 RPR (SYPHILIS SERO) W/ RFLX [REF] Routine 07/27/19 11:59 Heart Tones [RC] CONTINUOUS Non Stress Test [RC] PER UNIT ROUTINE May Shower [RC] ASDIRECTED Notify Provider [RC] PRN Up ad Obdulia [RC] ASDIRECTED Vaginal Exam [RC] PRN Vital Signs [RC] PER UNIT ROUTINE 07/27/19 12:02 Bedrest Bathroom Privileges [RC] ASDIRECTED Communication Order [RC] ASDIRECTED Communication Order [RC] ASDIRECTED Communication Order [RC] ASDIRECTED Notify Provider [RC] PRN Notify Provider [RC] PRN Notify Provider [RC] STAT Vaginal Exam [RC] PRN Vital Signs [RC] PER UNIT ROUTINE 07/27/19 18:15 Patient Status [ADT] Routine May Shower [RC] ASDIRECTED Up ad Obdulia [RC] ASDIRECTED Vital Signs [RC] PER UNIT ROUTINE Acetaminophen [Tylenol Extra Strength] 1,000 mg PO Q4H PRN Acetaminophen [Tylenol Extra Strength] 500 mg PO Q4H PRN Benzocaine/Menthol [Dermoplast Pain Relief 20%-0.5% [place]] 78 gm TOP ASDIRECTED PRN Docusate Sodium [Colace] 100 mg PO BID PRN Ibuprofen [Motrin] 400 mg PO Q4H PRN Ibuprofen [Motrin] 800 mg PO Q6H PRN Lanolin [Lansinoh HPA] See Dose Instructions TOP ASDIRECTED PRN Methylergonovine [Methergine] 0.2 mg IM ONETIME PRN Tranexamic Acid [Cyklokapron] 1,000 mg Sodium Chloride 0.9% [Normal Saline] 100 ml IV ONETIME bisacodyL [Dulcolax] 10 mg RECTAL ONETIME PRN witch Rajni [Tucks] 1 pad TOP ASDIRECTED PRN Assess Lochia [WOMSER] Per Unit Routine Assess Uterine Involution [WOMSER] Per Unit Routine Peripheral IV Discontinue [OM.PC] Routine Resuscitation Status Routine 07/27/19 18:16 Perineal Care [OM.PC] Per Unit Routine 07/27/19 Dinner Regular Diet [DIET] 07/28/19 08:13 Ready for Discharge [RC] PER UNIT ROUTINE - Assessment Assessment:: PPD#1 after stable, minimal lochia, tolerating diet. well, baby's glucose readings upper 40's Would like to go home today if possible. - Plan Plan:: discharge instructions reviewed. Dismiss to home. Discussed symptoms to call for regarding high BP, as she has had some borderline readings.
--- NOTE | 2019-07-28 10:31 | PCM48HPAN ---
Post Anesthesia Note - EVALUATION WITHIN 48HRS OF ANESTHETIC Vital Signs in Normal Range: Yes Patient Participated in Evaluation: Yes Respiratory Function Stable: Yes Airway Patent: Yes Cardiovascular Function Stable: Yes Hydration Status Stable: Yes Pain Control Satisfactory: Yes Nausea and Vomiting Control Satisfactory: Yes Mental Status Recovered: Yes Vital Signs: Last Vital Signs Temp 36.2 C 07/28/19 08:00 Pulse 72 07/28/19 08:00 Resp 16 07/28/19 08:00 BP 141/78 H 07/28/19 08:00 Pulse Ox 98 07/28/19 08:00 - COMMENTS/OBSERVATIONS Free Text/Narrative:: Doing well.
== END 2019-07-28 20:45 | disposition home or self-care (01) | DRG 807 ==
LOC: MW.OB 11:20 → OBSVTOIN 18:15 → MW.OB 18:15
PROVIDERS: ADMIT Obstetrics & Gynecology; ATTEND Obstetrics & Gynecology
PROC: 3E0R3BZ Introduction of Anesthetic Agent into Spinal Canal, Percutaneous Approach (ICD-10-PCS; 2019-07-04)
PROC: 10E0XZZ Delivery of Products of Conception, External Approach (ICD-10-PCS; principal; 2019-07-27)
PROC: 10907ZC Drainage of Amniotic Fluid, Therapeutic from Products of Conception, Via Natural or Artificial Opening (ICD-10-PCS; 2019-07-27)
PROC: 3E0P7VZ Introduction of Hormone into Female Reproductive, Via Natural or Artificial Opening (ICD-10-PCS; 2019-07-27)
DX: O24.420 Gestational diabetes mellitus in childbirth, diet controlled (principal); Z37.0 Single live birth; Z3A.39 39 weeks gestation of pregnancy; O99.343 Other mental disorders complicating pregnancy, third trimester; F41.9 Anxiety disorder, unspecified; F32.9 Major depressive disorder, single episode, unspecified
CPT/HCPCS: 36415; 51702; 59025; 59409; 82803; 82962; 85014; 85018; 85027; 86592; 86593; 86850; 86900; 86901; A9270-GY; J2590; J7120

== ENCOUNTER 2022-02-03 06:00 | Day surgery (SDC) | payer BC ==
[2022-02-03] MEDS ORDERED: Midazolam 1 MG/ML 2 ML SDV ONE (07:32)
[2022-02-03] MEDS ORDERED: fentaNYL 100 MCG/2 ML SDV ONE (07:32)
[2022-02-03] MEDS ORDERED: Propofol 200 MG/20 ML SDV ONE (07:32)
[2022-02-03] MEDS ORDERED: Lactated Ringers 1,000 ML IV SCH (08:00)
[2022-02-03] MEDS ORDERED: Ketamine 500 mg/10 ML MDV ONE (10:56)
== END 2022-02-03 12:15 ==
LOC: MW.SDS 06:00
PROVIDERS: ATTEND Surgery
DX: K29.50 Unspecified chronic gastritis without bleeding (principal); R13.10 Dysphagia, unspecified; F41.8 Other specified anxiety disorders; M79.7 Fibromyalgia; F90.9 Attention-deficit hyperactivity disorder, unspecified type; E66.01 Morbid (severe) obesity due to excess calories; F42.9 Obsessive-compulsive disorder, unspecified; Z79.899 Other long term (current) drug therapy; Z90.49 Acquired absence of other specified parts of digestive tract; Z98.890 Other specified postprocedural states; Z68.42 Body mass index [BMI] 45.0-49.9, adult
CPT/HCPCS: 43239; 81025; J2250; J2704; J3010; J3490; J7120; 00731